=== PATIENT | female | born 1990 | race Two or more races ===

== ENCOUNTER 2020-01-03 13:00 | Inpatient (IN) | payer OTHER ==
[~2020-01-03] VITALS: Ht 160 cm; Wt 66.7 kg
== END 2020-01-18 12:45 | disposition home or self-care (01) | DRG 807 ==
LOC: LDR 01-16 06:06 → OB/GYN 01-16 11:34
PROVIDERS: ADMIT Obstetrics & Gynecology
PROC: 10E0XZZ Delivery of Products of Conception, External Approach (ICD-10-PCS; principal; 2020-01-16)
PROC: 0KQM0ZZ Repair Perineum Muscle, Open Approach (ICD-10-PCS; 2020-01-16)
PROC: 3E033VJ Introduction of Other Hormone into Peripheral Vein, Percutaneous Approach (ICD-10-PCS; 2020-01-16)
PROC: 4A1HXCZ Monitoring of Products of Conception, Cardiac Rate, External Approach (ICD-10-PCS; 2020-01-16)
DX: O70.1 Second degree perineal laceration during delivery (principal); Z37.0 Single live birth; Z3A.39 39 weeks gestation of pregnancy

== ENCOUNTER 2023-04-10 13:02 | Inpatient (IN) | payer OTHER ==
[~2023-04-10] VITALS: Ht 160 cm; Wt 63.5 kg
[2023-04-22] MEDS ORDERED: FLONASE ALLERG9.9 ML (09:30)
[2023-04-22] MEDS ORDERED: INTEGRA F CAPS1 EACH (09:30)
[2023-04-22] MEDS ORDERED: FAMOTIDINE20 MG (09:30)
== END 2023-04-24 13:39 | disposition home or self-care (01) | DRG 798 ==
LOC: OB/GYN 04-22 06:36 → LDR 04-22 06:36 → OB/GYN 04-22 11:01
PROVIDERS: ADMIT Obstetrics & Gynecology; ATTEND Obstetrics & Gynecology
PROC: 0UB70ZZ Excision of Bilateral Fallopian Tubes, Open Approach (ICD-10-PCS; 2023-04-22)
PROC: 0KQM0ZZ Repair Perineum Muscle, Open Approach (ICD-10-PCS; 2023-04-22)
PROC: 4A1HXCZ Monitoring of Products of Conception, Cardiac Rate, External Approach (ICD-10-PCS; 2023-04-22)
PROC: 10E0XZZ Delivery of Products of Conception, External Approach (ICD-10-PCS; principal; 2023-04-22 12:15)
DX: O70.1 Second degree perineal laceration during delivery (principal); Z37.0 Single live birth; Z3A.39 39 weeks gestation of pregnancy; Z30.2 Encounter for sterilization; Z20.822 Contact with and (suspected) exposure to COVID-19